=== PATIENT | female | born 1935 | race Caucasian/White ===

== ENCOUNTER 2018-09-20 14:28 | Emergency (ER) | payer OTHER ==
[~2018-09-20] VITALS: Ht 160 cm; Wt 42.6 kg
[2018-09-20] MEDS ORDERED: PANTOPRAZOLE SO20 MG (14:44)
== END 2018-09-20 16:19 | disposition home or self-care (01) ==
LOC: ER 14:28
DX: S01.82XA Laceration with foreign body of other part of head, initial encounter (principal); X58.XXXA Exposure to other specified factors, initial encounter; Y93.89 Activity, other specified; Y92.89 Other specified places as the place of occurrence of the external cause; Y99.8 Other external cause status